=== PATIENT | female | born 2000 | race Caucasian/White ===

== ENCOUNTER → 2021-03-04 | Day surgery (SDC) | payer OTHER ==
[~2021-03-04] VITALS: Ht 162.6 cm; Wt 47.2 kg
[~2021-03-04] MED LIST: BUSPAR5 MG PO; CYPROHEPTADINE H4 MG PO; PROZAC20 MG PO
[2021-03-04 07:59] LABS: BASOPHIL 0.9 % (0-2); EOSINOPHIL 3.8 % (0-5); HCT 39.8 % (37.0-47.0); HGB 13.3 g/dl (12.5-16.0); LYMPHOCYTE 27.3 % (15-48); MCH 30.9 pg (25.0-31.0); MCHC 33.4 g/dL (32.0-36.0); MCV 92.6 fL (78.0-100.0); MONOCYTE 8.8 % (0-12); MPV 9.9 fL (6.0-9.5); NEUTROPHIL 58.3 % (41-80); NRBC 0; PLT 454 K/uL (150-400); RDW 12.9 % (11.5-14.0); WBC 8.5 K/uL (4.0-10.5)
== END | disposition home or self-care (01) ==
LOC: FAS 12-31 09:30
PROVIDERS: Oral & Maxillofacial Surgery
DX: K02.9 Dental caries, unspecified (principal); K01.1 Impacted teeth
CPT/HCPCS: 36415; 84703; 85025; J1100; J2250; J2405; J2704; J3010; J7120